=== PATIENT | female | born 1995 | race Caucasian/White ===

== ENCOUNTER 2025-05-09 13:30 | Emergency (ER) | payer MEDICAID ==
[~2025-05-09] VITALS: Ht 170.2 cm; Wt 87.2 kg
--- NOTE | 2025-05-09 13:44 | Physician Documentation ---
History of Present Illness ~ Chief Complaint: Abdominal Pain Stated Complaint: ABDOMINAL PAIN/CONSTIPATED Time Seen by MD: 14:28 HPI 30-year-old female with complaints of upper abdominal pain with no bowel movement for four days. Patient is pointing to her left upper quadrant. Medication Reconciliation Allergies: Coded Allergies: acetaminophen (Verified Allergy, Unknown, 05/09/25) hydrocodone (Verified Allergy, Unknown, 05/09/25) latex (Verified Allergy, Unknown, 05/09/25) Scheduled Apixaban (Eliquis), 10 MG PO BID Magnesium Citrate (MAGNESIUM CITRATE oral solution), 296 ML PO ONCE Physical Exam Vital Signs: Temperature: 98.8, Source: Temporal, Heart Rate: 85, Respiratory Rate: 16, BP: 120/73, Pulse Oximetry: 98, Weight: 87.250 Oxygen Flow Rate: 0 General Appearance: alert, WD/WN, no apparent distress Respiratory: no respiratory distress Gastrointestinal: bowels sounds present, tenderness; No: guarding, rigidity Gastrointestinal Left upper quadrant tenderness to palpate. Epigastric tenderness. No CVA tenderness Progress Results/Orders Results/Orders Orders - JASON QUIÑONES [employer] Abdomen,Single View(Kub) (05/09/25 14:44) Vl Venous (05/09/25 14:56) Completed Orders - JASON [employer] Abdomen,Single View(Kub) (05/09/25 14:44) Apixaban Tablet (Eliquis Tablet) (05/09/25 16:20) Magnesium Citrate Oral Ce. (Magnesium C (05/09/25 16:20) Vital Signs 05/09/25 13:33 Temp 98.8 Pulse 85 Resp 16 B/P (MAP) 120/73 Pulse Ox 98 O2 Flow Rate 0 Laboratory Tests Test 05/09/25 13:47 05/09/25 14:49 White Blood Count 7.7 Red Blood Count 4.54 Hemoglobin 14.2 Hematocrit 41.5 Mean Corpuscular Volume 91.4 Mean Corpuscular Hemoglobin 31.4 H Mean Corpuscular Hemoglobin Concent 34.3 Red Cell Distribution Width 12.9 Platelet Count 182 Mean Platelet Volume 9.0 Neutrophils (%) (Auto) 64.1 Lymphocytes (%) (Auto) 28.7 Monocytes (%) (Auto) 5.5 Eosinophils (%) (Auto) 1.4 Basophils (%) (Auto) 0.3 Neutrophils # (Auto) 4.9 Lymphocytes # (Auto) 2.2 Monocytes # (Auto) 0.4 Eosinophils # (Auto) 0.1 Basophils # (Auto) 0.0 CBC Comment Sodium Level 139 Potassium Level 4.0 Chloride Level 108 H Carbon Dioxide Level 20.4 L Anion Gap 11 Blood Urea Nitrogen 13 Creatinine 0.94 H Estimated GFR/1.73 m2 69 BUN/Creatinine Ratio 13.8 Glucose Level 92 Calcium Level 8.3 L Total Bilirubin 0.6 Aspartate Amino Transf (AST/SGOT) 13 Alanine Aminotransferase (ALT/SGPT) 12 Alkaline Phosphatase 46 Total Protein 7.0 Albumin 3.8 Globulin 3.2 Albumin/Globulin Ratio 1.2 Amylase Level 37 Lipase 29 Human Chorionic Gonadotropin, Qual Negative Chemistry Comments Urine Specimen Description Cln catch midstream Urine Color Yellow Urine Clarity Slightly cloudy Urine pH 6.0 Urine Specific [place] 1.020 Urine Protein Negative Urine Glucose (UA) Negative Urine Ketones Negative Urine Occult Blood Negative Urine Nitrite Negative Urine Bilirubin Negative Urine Urobilinogen 0.2 Urine Leukocyte Esterase Negative Urine RBC 0-2 Urine WBC 0-4 Urine Squamous Epithelial Cells Many Urine Transitional Epithelial Cells Few Urine Bacteria Few Urine Mucus Few Urine Culture Indicated Not ind Volume Urine Centrifuged 10 ml Urine HCG, Qualitative Negative Urine Comment Medical Decision Making Findings Initially I was concern for a bowel obstruction however upon further evaluation, she appears to have moderate constipation which may or may not be 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 I did order a vascular ultrasound which came back positive for multiple small DVTs which are likely acute on chronic. According to start her on Mag citrate and Eliquis. Diff Dx Pain:Considerations: Include: AAA, -Complete, - Incomplete, -Inevitable, -Missed, -Threatened, Abruptio placentae, Angina/WV, Aortic dissection, Appendicitis, Bowel obstruction, Cholangitis, Cholecystitis, Cholelithasis, Constipation, Diverticular disease, Dysmenorrhea, Ectopic , Esophageal rupture, Esophagitis, Gastritis/PUD, Gastroenteritis, GI hemorrhage, Hernia, Hepatitis, Inflammatory BD, Ischemic bowel, Mass, Ovarian cyst/torsion, Pancreatitis, PID, Porphyria, Trauma, intraabdominal, Urinary obstruction, Urinary tract infection, Urolithiasis, Other Diff Dx N/V/D:Considerations: Include: Appendicitis, Bowel obstruction, Dehydration, DKA, Diarrhea - bacterial, Diarrhea - parasitic, Diarrhea - viral, Diverticulitis, Diverticulosis, Drug toxicity, Electrolyte imbalance, Food poisoning, Gastroenteritis, GE reflux, GI bleed, Hepatitis, Hernia, Hypovolemia, Hypotension, Inflammatory BD, Impaction, Malnutrition, Pancreatitis, , PUD, Renal failure, Urolithiasis, Urinary obstruction, UTI, Other Departure Disposition: 01 HOME / SELF CARE / HOMELESS Impression: Primary Impression: Abdominal pain Additional Impressions: Constipation DVT (deep vein thrombosis) in Condition: Stable Discharge Instructions: Deep Vein Thrombosis Referrals: NO PRIMARY CARE PROVIDER (PCP) Prescriptions Magnesium Citrate (MAGNESIUM CITRATE oral solution) 296 Ml Solution 296 ML PO ONCE for 1 Day, #296 ML 0 Refills Prov: JASON QUIÑONES NP 05/09/25 Apixaban (ELIQUIS) 5 Mg Tablet 10 MG PO BID for dvt for 14 Days, #21 TAB Prov: JASON QUIÑONES NP 05/09/25 Signature Scribe Signature: Scribed for Jason Quiñones [employer] by Jason Garcia NP . 05/09/25 16:31 Attestation: Scribed for Jason Quiñones [employer] Lead by Jason Garcia NP . 05/09/25 16:31 SUZANNE ESTEVEZ NP May 09, 2025 13:43 JASON QUIÑONES NP May 09, 2025 16:27
[2025-05-09 14:03] LABS: BASOPHILS % (AUTO) 0.3 % (0-1); EOSINOPHILS # (AUTO) 0.1 X10'3 (0-0.9); EOSINOPHILS % (AUTO) 1.4 % (0-6); HEMATOCRIT 41.5 % (35.0-45.0); HEMOGLOBIN 14.2 g/dl (12.0-16.0); LYMPHOCYTES # (AUTO) 2.2 X10'3 (1.1-4.8); LYMPHOCYTES % (AUTO) 28.7 % (21-51); MEAN CORPUSCULAR HEMOGLOBIN 31.4 PG (27.0-31.0); MEAN CORPUSCULAR HGB CONC 34.3 g/dL (33.0-36.5); MEAN CORPUSCULAR VOLUME 91.4 FL (78-98); MONOCYTES # (AUTO) 0.4 X10'3 (0-0.9); MONOCYTES % (AUTO) 5.5 % (2-12); NEUTROPHILS # (AUTO) 4.9 X10'3 (1.8-7.7); NEUTROPHILS % (AUTO) 64.1 % (42-75); PLATELET COUNT 182 X10'3 (140-440); RED BLOOD COUNT 4.54 X10'6 (4.20-5.60); RED CELL DISTRIBUTION WIDTH 12.9 % (11.5-14.5); WHITE BLOOD COUNT 7.7 X10'3 (4.5-11.0)
[2025-05-09 14:10] LABS: ALANINE AMINOTRANSFERASE 12 U/L (12-78); ALBUMIN 3.8 G/DL (3.4-5.0); ALBUMIN/GLOBULIN RATIO 1.2 (1.1-1.5); ALKALINE PHOSPHATASE 46 IU/L (46-116); AMYLASE 37 U/L (25-115); ANION GAP 11 (8-16); ASPARTATE AMINO TRANSFERASE 13 U/L (10-37); BILIRUBIN,TOTAL 0.6 MG/DL (0.1-1.0); BLOOD UREA NITROGEN 13 MG/DL (7-18); BUN/CREATININE RATIO 13.8 (10.0-20.0); CALCIUM 8.3 MG/DL (8.5-10.1); CHLORIDE 108 MMOL/L (99-107); CREATININE 0.94 MG/DL (0.40-0.90); GLUCOSE 92 MG/DL (70-104); LIPASE 29 U/L (16-77); SODIUM 139 MMOL/L (135-145); TOTAL CARBON DIOXIDE 20.4 MMOL/L (24-32); eCRCL 84 ML/MIN; eGFR 69 ML/MIN
[2025-05-09 14:16] LABS: HCG SERUM QL NEGATIVE
--- NOTE | 2025-05-09 15:17 | RADIOLOGY REPORT ---
Exam: DI ABDOMEN,SINGLE VIEW(KUB) Indication: constipation Comparison: None Technique: 2 radiographic views of the abdomen. Findings: Moderate volume colonic stool. Nonobstructive bowel gas pattern noted. There is no definite evidence for pneumoperitoneum. No abnormal calcifications noted. Impression: Moderate volume colonic stool.
[2025-05-09 15:56] LABS: URINE HCG NEGATIVE (NEG)
[2025-05-09 15:58] LABS: BILIRUBIN,URINE NEGATIVE (Neg); CLARITY,URINE SLIGHTLY CLOUDY (Clear); COLOR,URINE YELLOW (Yellow); GLUCOSE, URINE NEGATIVE (Neg); KETONES,URINE NEGATIVE (Neg); LEUKOCYTE ESTERASE ,URINE NEGATIVE (Neg); NITRITES, URINE NEGATIVE (Neg); OCCULT BLOOD,URINE NEGATIVE (Neg); PROTEIN,URINE NEGATIVE (Neg); UROBILINOGEN,URINE 0.2 E.U/dL (0.2-1.0)
[2025-05-09 15:59] LABS: UA COLLECTION TYPE CLN CATCH MIDSTREAM
[2025-05-09 16:18] LABS: SQUAMOUS EPITHELIAL CELL,UR MANY /LPF (FEW)
[2025-05-09 16:20] LABS: BACTERIA,URINE FEW /HPF (Neg); MUCUS STRANDS FEW /LPF (Neg); WBC,URINE 0-4 /HPF (0-4)
[2025-05-09 16:21] LABS: RBC,URINE 0-2 /HPF (0-2)
[2025-05-09 16:22] LABS: TRANSITIONAL EPI CELLS,URINE FEW /HPF
[2025-05-09] MEDS ORDERED: APIX5TAB3 PO (16:28)
[2025-05-09] MEDS ORDERED: MAGN296S68 PO (16:29)
[2025-05-09] MEDS: apixaban 5mg tablet PO ONE (16:36)
[2025-05-09] MEDS: magnesium citrate 296ml oral solution PO ONE (16:36)
[2025-05-09 16:44] VITALS: BP 115/76; PULSE 72; TEMP 98.8; O2SAT 98
[2025-05-09 16:48] VITALS: RESP 16
--- NOTE | 2025-05-09 16:55 | VASCULAR REPORT ---
EXAM: US Duplex Left Lower Extremity Veins CLINICAL INDICATION: Reason TECHNIQUE: Real-time duplex ultrasound scan of the left lower extremity veins integrating B-mode two -dimensional vascular structure, Doppler spectral analysis, color flow Doppler imaging and compressio n. COMPARISON: No relevant prior studies available. FINDINGS: DEEP VEINS: Nonocclusive acute on chronic thrombus in the left common femoral vein, left superficia l femoral vein, and left popliteal vein. SUPERFICIAL VEINS: Unremarkable. No thrombus in the visualized great saphenous vein. SOFT TISSUES: No acute findings. No popliteal cyst. OTHER FINDINGS: Comparison None. IMPRESSION: Nonocclusive acute on chronic thrombus in the left common femoral vein, left superficial femoral vei n, and left popliteal vein. HS:Y
== END 2025-05-09 16:51 | disposition home or self-care (01) ==
LOC: ER 13:31
DX: K59.00 Constipation, unspecified (principal); O99.619 Diseases of the digestive system complicating pregnancy, unspecified trimester; Z88.5 Allergy status to narcotic agent
CPT/HCPCS: 36415; 74018; 80053; 81001; 81025; 82150; 83690; 84703; 85025; 93971; 99284